=== PATIENT | female | born 1970 | race Caucasian/White ===

== ENCOUNTER 2019-04-13 11:23 | Emergency (ER) | payer OTHER, SELFPAY ==
[2019-04-13 11:26] VITALS: BP 148/86; PULSE 68; RESP 16; TEMP 36.4; O2SAT 98; BMI 23.1
--- NOTE | 2019-04-13 11:37 | PC.NURSE ---
C-COLLAR PLACED IN TRIAGE
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
[2019-04-13 13:48] VITALS: BP 145/61; PULSE 77; RESP 18; O2SAT 100
== END 2019-04-13 13:33 | disposition home or self-care (01) ==
PROVIDERS: Emergency Provider Nurse Practitioner Family; Family Provider Family Medicine
DX: S16.1XXA Strain of muscle, fascia and tendon at neck level, initial encounter (principal); S80.10XA Contusion of unspecified lower leg, initial encounter; V89.2XXA Person injured in unspecified motor-vehicle accident, traffic, initial encounter
CPT/HCPCS: 72125; 99282

== ENCOUNTER 2020-08-06 11:41 | Outpatient (CLI) | payer BC, SELFPAY ==
--- NOTE | 2020-08-06 11:48 | XR_ITS ---
WS: [id number] LEFT KNEE: 3 VIEW(S) TECHNIQUE: AP, oblique(s) and lateral. HISTORY: KNEE PAIN, LEFT COMPARISON: None available. No fracture or dislocation. No joint space narrowing or osteophytes. No joint effusion. No soft tissue abnormality. XR/XR knee LT 3V* [id number] IMPRESSION: Normal LEFT knee.
== END 2020-08-06 11:42 | disposition home or self-care (01) ==
PROVIDERS: Visit Provider Family Medicine
DX: M25.562 Pain in left knee (principal)
CPT/HCPCS: 73562

== ENCOUNTER 2020-09-03 10:52 | Outpatient (CLI) | payer BC, SELFPAY ==
--- NOTE | 2020-09-03 11:04 | MR_ITS ---
WS: [id number] MRI LEFT KNEE HISTORY: KNEE PAIN, LEFT COMPARISON: LEFT knee radiograph 08/06/2020 Anterior cruciate ligament: Intact. Posterior cruciate ligament: Intact. Medial collateral ligament: Intact. Posterior lateral corner structures: Intact. Medial menisci: Intact. Normal signal, size and shape. Lateral meniscus: Intact. Normal signal, size and shape. Extensor mechanism: Distal quadriceps tendon and patellar tendons are intact. Fluid and soft tissue: Large joint effusion. There is additional edema along the anterior knee. No Ba ker's cyst. Osseous and articular structures: Patellofemoral compartment: Superficial cartilaginous defects at the patellar eminence and over the m edial patellar facet. Medial compartment: 5 mm cartilaginous defect along the weightbearing surface of the femoral condyle. No underlying marrow edema. Lateral compartment: Mild irregularity in the surface of the cartilage involving the weightbearing yoon rface of the femoral condyle and tibial plateau. Superficial cartilaginous defects with no marrow ritchie ma. MR/MR knee LT wo con* [id number] IMPRESSION: 1. Large suprapatellar joint effusion. 2. 5 mm cartilaginous defect weightbearing surface medial femoral condyle. 3. Mild chondromalacia of the patella involving the eminence and medial facet. 4. Minimal superficial cartilage irregularity lateral compartment.
== END 2020-09-03 10:53 | disposition home or self-care (01) ==
PROVIDERS: Visit Provider Family Medicine
DX: M25.562 Pain in left knee (principal); M25.462 Effusion, left knee; M22.42 Chondromalacia patellae, left knee
CPT/HCPCS: 73721

== ENCOUNTER → 2020-09-25 10:50 | Outpatient (BNVA) | payer BC, SELFPAY | PROVIDERS: Visit Provider Specialist | DX: S80.10XA Contusion of unspecified lower leg, initial encounter (principal); M17.12 Unilateral primary osteoarthritis, left knee; M71.22 Synovial cyst of popliteal space [Baker], left knee; X58.XXXA Exposure to other specified factors, initial encounter | CPT/HCPCS: 73560; 73565 ==

== ENCOUNTER → 2022-01-06 10:23 | Outpatient (BNVA) | payer BC, SELFPAY | PROVIDERS: PCP Family Medicine; Visit Provider Family Medicine | DX: G47.00 Insomnia, unspecified (principal); F39 Unspecified mood [affective] disorder; M25.50 Pain in unspecified joint; M79.10 Myalgia, unspecified site; R06.00 Dyspnea, unspecified; N95.9 Unspecified menopausal and perimenopausal disorder | CPT/HCPCS: 80053; 83001; 83002; 85025; 85651; 86140 ==

== ENCOUNTER → 2023-06-10 14:43 | Outpatient (BNVA) | payer BC, SELFPAY | PROVIDERS: PCP Family Medicine; Visit Provider Family Medicine | DX: Z00.00 Encounter for general adult medical examination without abnormal findings (principal); Z13.6 Encounter for screening for cardiovascular disorders; E03.9 Hypothyroidism, unspecified | CPT/HCPCS: 80053; 80061; 82607; 83036; 84443; 85025 ==